=== PATIENT | female | born 1945 | race Caucasian/White ===

== ENCOUNTER 2016-07-21 15:57 | Observation (INO) | payer MEDICARE, OTHER | END 2016-07-23 11:00 | disposition home or self-care (01) | LOC: MS 15:57 | PROVIDERS: ADMIT Family Medicine | PROC: 3E0234Z Introduction of Serum, Toxoid and Vaccine into Muscle, Percutaneous Approach (ICD-10-PCS; principal; 2016-07-21) | DX: I50.21 Acute systolic (congestive) heart failure (principal); R53.1 Weakness; I11.0 Hypertensive heart disease with heart failure; J44.9 Chronic obstructive pulmonary disease, unspecified; Z86.14 Personal history of Methicillin resistant Staphylococcus aureus infection; N39.0 Urinary tract infection, site not specified; N28.9 Disorder of kidney and ureter, unspecified; K21.9 Gastro-esophageal reflux disease without esophagitis; Z90.49 Acquired absence of other specified parts of digestive tract; Z90.710 Acquired absence of both cervix and uterus; Z96.652 Presence of left artificial knee joint; Z88.2 Allergy status to sulfonamides; Z88.8 Allergy status to other drugs, medicaments and biological substances; Z79.899 Other long term (current) drug therapy; Z91.81 History of falling; Z23 Encounter for immunization ==

== ENCOUNTER 2016-07-28 14:40 | Inpatient (IN) | payer MEDICARE, OTHER ==
[~2016-07-28] VITALS: Ht 157.5 cm; Wt 124.0 kg
[2016-07-28 15:48] LABS: ALBUMIN 3.6 gm/dL (3.4-5.0); BILIRUBIN,TOTAL 0.38 mg/dL (0.0-1.0); CALCIUM 8.3 mg/dL (8.7-10.7); CREATININE 1.4 mg/dL (0.6-1.3)
[2016-07-28 15:51] LABS: POTASSIUM 4.7 mmol/L (3.5-5.1)
[2016-07-28 16:15] LABS: BASO # 0.1 10_X3_uL (0.0-0.1); BASO % 1.1 % (0.1-1.2); EOS # 0.2 10_X3_uL (0.0-0.4); EOS % 2.9 % (0.7-5.8); GRAN # 5.1 10_X3_uL (1.6-6.1); GRAN % 66.6 % (34.0-71.1); HEMATOCRIT 42.2 % (34-45); LYMPH # 1.7 10_X3_uL (1.2-3.7); LYMPH % 22.7 % (19.3-51.7); MEAN CORPUSCULAR HGB CONC 33.2 g/dL (32.0-36.0); MEAN CORPUSCULAR VOLUME 93.4 fL (79-95); MONO # 0.5 10_X3_uL (0.2-0.9); MONO % 6.7 % (4.7-12.5); RED BLOOD COUNT 4.52 x10_6/uL (3.9-5.2); RED CELL DISTRIBUTION WIDTH 13.7 % (11.7-14.4); WHITE BLOOD COUNT 7.6 x10_3/uL (4.0-10.0)
[2016-07-28 16:16] LABS: PLATELET COUNT 131 x10_3/uL (182-369)
[2016-07-29 06:41] LABS: BASO % 0.3 % (0.1-1.2); EOS # 0.1 10_X3_uL (0.0-0.4); EOS % 1.7 % (0.7-5.8); GRAN # 3.8 10_X3_uL (1.6-6.1); GRAN % 63.2 % (34.0-71.1); HEMATOCRIT 40.7 % (34-45); HEMOGLOBIN 13.1 g/dL (11.2-15.7); LYMPH # 1.7 10_X3_uL (1.2-3.7); LYMPH % 28.1 % (19.3-51.7); MEAN CORPUSCULAR HEMOGLOBIN 30.7 pg (27.0-33.0); MEAN CORPUSCULAR HGB CONC 32.2 g/dL (32.0-36.0); MEAN CORPUSCULAR VOLUME 95.3 fL (79-95); MEAN PLATELET VOLUME 9.6 fl (7.5-11.5); MONO # 0.4 10_X3_uL (0.2-0.9); MONO % 6.7 % (4.7-12.5); PLATELET COUNT 221 x10_3/uL (182-369); RED BLOOD COUNT 4.27 x10_6/uL (3.9-5.2); RED CELL DISTRIBUTION WIDTH 13.4 % (11.7-14.4)
[2016-07-29 07:01] LABS: ALBUMIN 3.3 gm/dL (3.4-5.0); BILIRUBIN,TOTAL 0.36 mg/dL (0.0-1.0); CALCIUM 8.2 mg/dL (8.7-10.7); CREATININE 1.5 mg/dL (0.6-1.3); POTASSIUM 5.1 mmol/L (3.5-5.1); TOTAL PROTEIN 6.8 gm/dL (6.4-8.2)
[2016-07-30 06:51] LABS: ALBUMIN 3.4 gm/dL (3.4-5.0); BILIRUBIN,TOTAL 0.28 mg/dL (0.0-1.0); CALCIUM 8.2 mg/dL (8.7-10.7); CREATININE 1.6 mg/dL (0.6-1.3); TOTAL PROTEIN 6.7 gm/dL (6.4-8.2)
[2016-07-30 10:44] LABS: HEMATOCRIT 42.2 % (34-45); HEMOGLOBIN 13.6 g/dL (11.2-15.7); MEAN CORPUSCULAR HEMOGLOBIN 30.6 pg (27.0-33.0); MEAN CORPUSCULAR HGB CONC 32.2 g/dL (32.0-36.0); MEAN CORPUSCULAR VOLUME 94.8 fL (79-95); MEAN PLATELET VOLUME 10.4 fl (7.5-11.5); RED BLOOD COUNT 4.45 x10_6/uL (3.9-5.2); RED CELL DISTRIBUTION WIDTH 13.4 % (11.7-14.4); WHITE BLOOD COUNT 5.8 x10_3/uL (4.0-10.0)
[2016-07-31 07:47] LABS: CALCIUM 8.3 mg/dL (8.7-10.7); CREATININE 1.4 mg/dL (0.6-1.3); POTASSIUM 5.2 mmol/L (3.5-5.1)
[2016-07-31 07:52] LABS: HEMATOCRIT 41.8 % (34-45); HEMOGLOBIN 13.9 g/dL (11.2-15.7); MEAN CORPUSCULAR HGB CONC 33.3 g/dL (32.0-36.0); MEAN CORPUSCULAR VOLUME 93.3 fL (79-95); MEAN PLATELET VOLUME 10.2 fl (7.5-11.5); RED BLOOD COUNT 4.48 x10_6/uL (3.9-5.2); RED CELL DISTRIBUTION WIDTH 13.3 % (11.7-14.4); WHITE BLOOD COUNT 6.8 x10_3/uL (4.0-10.0)
[2016-08-01 07:16] LABS: HEMATOCRIT 42.3 % (34-45); HEMOGLOBIN 13.8 g/dL (11.2-15.7); MEAN CORPUSCULAR HEMOGLOBIN 30.5 pg (27.0-33.0); MEAN CORPUSCULAR HGB CONC 32.6 g/dL (32.0-36.0); MEAN CORPUSCULAR VOLUME 93.4 fL (79-95); MEAN PLATELET VOLUME 9.5 fl (7.5-11.5); RED BLOOD COUNT 4.53 x10_6/uL (3.9-5.2); RED CELL DISTRIBUTION WIDTH 13.5 % (11.7-14.4)
[2016-08-01 07:59] LABS: ALBUMIN 3.5 gm/dL (3.4-5.0); BILIRUBIN,TOTAL 0.28 mg/dL (0.0-1.0); CALCIUM 8.2 mg/dL (8.7-10.7); CREATININE 1.5 mg/dL (0.6-1.3); MAGNESIUM 2.2 mg/dL (1.8-2.4); POTASSIUM 5.2 mmol/L (3.5-5.1); TOTAL PROTEIN 6.6 gm/dL (6.4-8.2)
[2016-08-02 07:24] LABS: HEMOGLOBIN 13.2 g/dL (11.2-15.7); MEAN CORPUSCULAR HEMOGLOBIN 30.6 pg (27.0-33.0); MEAN CORPUSCULAR HGB CONC 32.2 g/dL (32.0-36.0); MEAN CORPUSCULAR VOLUME 95.1 fL (79-95); MEAN PLATELET VOLUME 9.6 fl (7.5-11.5); RED BLOOD COUNT 4.31 x10_6/uL (3.9-5.2); RED CELL DISTRIBUTION WIDTH 13.3 % (11.7-14.4); WHITE BLOOD COUNT 6.8 x10_3/uL (4.0-10.0)
[2016-08-02 07:47] LABS: ALBUMIN 3.4 gm/dL (3.4-5.0); BILIRUBIN,TOTAL 0.25 mg/dL (0.0-1.0); CREATININE 1.3 mg/dL (0.6-1.3); MAGNESIUM 2.2 mg/dL (1.8-2.4); TOTAL PROTEIN 6.4 gm/dL (6.4-8.2)
[2016-08-03 07:24] LABS: HEMOGLOBIN 13.2 g/dL (11.2-15.7); MEAN CORPUSCULAR HEMOGLOBIN 30.6 pg (27.0-33.0); MEAN CORPUSCULAR HGB CONC 32.2 g/dL (32.0-36.0); MEAN CORPUSCULAR VOLUME 95.1 fL (79-95); MEAN PLATELET VOLUME 9.3 fl (7.5-11.5); RED BLOOD COUNT 4.31 x10_6/uL (3.9-5.2); RED CELL DISTRIBUTION WIDTH 13.4 % (11.7-14.4); WHITE BLOOD COUNT 7.3 x10_3/uL (4.0-10.0)
[2016-08-03 07:36] LABS: CALCIUM 8.3 mg/dL (8.7-10.7); CREATININE 1.4 mg/dL (0.6-1.3); POTASSIUM 5.1 mmol/L (3.5-5.1)
[2016-08-03 16:55] LABS: CALCIUM 8.4 mg/dL (8.7-10.7); CREATININE 1.6 mg/dL (0.6-1.3); POTASSIUM 4.8 mmol/L (3.5-5.1)
[2016-08-04 07:58] LABS: HEMOGLOBIN 13.3 g/dL (11.2-15.7); MEAN CORPUSCULAR HEMOGLOBIN 30.6 pg (27.0-33.0); MEAN CORPUSCULAR HGB CONC 32.4 g/dL (32.0-36.0); MEAN CORPUSCULAR VOLUME 94.5 fL (79-95); MEAN PLATELET VOLUME 9.8 fl (7.5-11.5); RED BLOOD COUNT 4.34 x10_6/uL (3.9-5.2); RED CELL DISTRIBUTION WIDTH 13.6 % (11.7-14.4); WHITE BLOOD COUNT 7.2 x10_3/uL (4.0-10.0)
[2016-08-04 16:03] LABS: URINE BACTERIA TRACE (NONE SEEN); URINE BILIRUBIN NEGATIVE (NEGATIVE); URINE BLOOD NEGATIVE (NEGATIVE); URINE GLUCOSE (UA) NORMAL (NORMAL); URINE KETONE NEGATIVE (NEGATIVE); URINE LEUKOCYTE ESTERASE TRACE (NEGATIVE); URINE NITRATE NEGATIVE (NEGATIVE); URINE PROTEIN NEGATIVE (NEGATIVE); URINE RBC RARE /[HPF] (0-2); URINE SQUAMOUS EPITHELIAL CELL 0-10 /[HPF] (NONE SEEN); URINE WBC 0-5 /[HPF] (0-5); URINE YEAST FEW (NONE SEEN); UROBILINOGEN NORMAL mg/dL (<1.0)
[2016-08-05 07:29] LABS: BASO % 0.3 % (0.1-1.2); EOS # 0.2 10_X3_uL (0.0-0.4); EOS % 2.7 % (0.7-5.8); GRAN # 4.6 10_X3_uL (1.6-6.1); GRAN % 61.9 % (34.0-71.1); HEMATOCRIT 42.1 % (34-45); HEMOGLOBIN 13.5 g/dL (11.2-15.7); LYMPH # 2.1 10_X3_uL (1.2-3.7); LYMPH % 27.9 % (19.3-51.7); MEAN CORPUSCULAR HEMOGLOBIN 30.4 pg (27.0-33.0); MEAN CORPUSCULAR HGB CONC 32.1 g/dL (32.0-36.0); MEAN CORPUSCULAR VOLUME 94.8 fL (79-95); MEAN PLATELET VOLUME 10.1 fl (7.5-11.5); MONO # 0.5 10_X3_uL (0.2-0.9); MONO % 7.2 % (4.7-12.5); PLATELET COUNT 217 x10_3/uL (182-369); RED BLOOD COUNT 4.44 x10_6/uL (3.9-5.2); RED CELL DISTRIBUTION WIDTH 13.4 % (11.7-14.4); WHITE BLOOD COUNT 7.4 x10_3/uL (4.0-10.0)
[2016-08-05 08:45] LABS: ALBUMIN 3.5 gm/dL (3.4-5.0); BILIRUBIN,TOTAL 0.33 mg/dL (0.0-1.0); CALCIUM 8.5 mg/dL (8.7-10.7); CREATININE 1.4 mg/dL (0.6-1.3); POTASSIUM 4.9 mmol/L (3.5-5.1); TOTAL PROTEIN 6.7 gm/dL (6.4-8.2)
== END 2016-08-05 11:15 | disposition home or self-care (01) | DRG 690 ==
LOC: MS 14:40
PROVIDERS: ADMIT Family Medicine
DX: N39.0 Urinary tract infection, site not specified (principal); Z68.43 Body mass index [BMI] 50.0-59.9, adult; B96.20 Unspecified Escherichia coli [E. coli] as the cause of diseases classified elsewhere; Z16.12 Extended spectrum beta lactamase (ESBL) resistance; R53.1 Weakness; I12.9 Hypertensive chronic kidney disease with stage 1 through stage 4 chronic kidney disease, or unspecified chronic kidney disease; N18.3 Chronic kidney disease, stage 3 (moderate); R30.0 Dysuria; E11.22 Type 2 diabetes mellitus with diabetic chronic kidney disease; J44.9 Chronic obstructive pulmonary disease, unspecified; Z80.9 Family history of malignant neoplasm, unspecified; E66.01 Morbid (severe) obesity due to excess calories; B37.9 Candidiasis, unspecified; E87.5 Hyperkalemia; R00.1 Bradycardia, unspecified; E83.51 Hypocalcemia; Z88.2 Allergy status to sulfonamides; Z88.8 Allergy status to other drugs, medicaments and biological substances; Z79.899 Other long term (current) drug therapy
CPT/HCPCS: 36415; 80048; 80053; 81001; 82306; 82330; 83735; 84132; 85025; 87086; 93041; 97110; 97161; 97530; 99070; J1335

== ENCOUNTER 2016-07-28 14:40 | Observation (INO) | payer MEDICARE, OTHER | END 2016-07-29 16:23 | disposition other institution (70) | LOC: MS 14:40 | PROVIDERS: ADMIT Family Medicine | DX: N39.0 Urinary tract infection, site not specified (principal); B96.20 Unspecified Escherichia coli [E. coli] as the cause of diseases classified elsewhere; Z16.12 Extended spectrum beta lactamase (ESBL) resistance; R53.1 Weakness; I12.9 Hypertensive chronic kidney disease with stage 1 through stage 4 chronic kidney disease, or unspecified chronic kidney disease; N18.3 Chronic kidney disease, stage 3 (moderate); R30.0 Dysuria; E11.22 Type 2 diabetes mellitus with diabetic chronic kidney disease; J44.9 Chronic obstructive pulmonary disease, unspecified; Z80.9 Family history of malignant neoplasm, unspecified; E66.01 Morbid (severe) obesity due to excess calories; Z68.43 Body mass index [BMI] 50.0-59.9, adult; B37.9 Candidiasis, unspecified; E87.5 Hyperkalemia; R00.1 Bradycardia, unspecified; E83.51 Hypocalcemia; Z88.2 Allergy status to sulfonamides; Z88.8 Allergy status to other drugs, medicaments and biological substances; Z79.899 Other long term (current) drug therapy | CPT/HCPCS: 36415; 80053; 85025; 96365; 96367; 96375; 99070; G0378; J1335 ==